=== PATIENT | female | born 1955 | race Caucasian/White ===

== ENCOUNTER 2021-06-03 21:45 | Inpatient (IN) | payer OTHER, MEDICAID ==
[~2021-06-03] VITALS: Ht 167.6 cm; Wt 122.0 kg
[2021-06-03 21:45] VITALS: BP_SYST 152
[2021-06-03] MEDS ORDERED: ONDANSETRON 4 MG ODT TAB ONE (21:56)
[2021-06-03 22:42] LABS: BASOPHILS # (AUTO) 0.1 K/uL (0.0-0.2); BASOPHILS % (AUTO) 0.7 % (0.0-2.0); EOSINOPHILS # (AUTO) 0.3 K/uL (0.0-0.4); EOSINOPHILS % (AUTO) 3.1 % (0.0-4.0); HEMATOCRIT 40.9 % (36-48); HEMOGLOBIN 13.3 g/dL (12.0-16.0); LYMPHOCYTES # (AUTO) 2.7 K/uL (1.0-5.5); LYMPHOCYTES % (AUTO) 32.8 % (20.5-51.5); MEAN CORPUSCULAR HEMOGLOBIN 28 pg (27-31); MEAN CORPUSCULAR HGB CONC 33 % (32-36); MEAN CORPUSCULAR VOLUME 87 fL (79.0-98.0); MONOCYTES # (AUTO) 0.4 K/uL (0.0-1.0); MONOCYTES % (AUTO) 5.4 % (1.7-9.3); NEUTROPHILS # (AUTO) 4.8 K/uL (1.8-7.7); PLATELET COUNT (AUTO) 236 K/uL (130-430); RED BLOOD CELL COUNT(AUTO) 4.68 MIL/uL (4.2-6.2); RED CELL DISTRIBUTION WIDTH 17.6 % (9.0-15.0); WHITE BLOOD COUNT (AUTO) 8.3 K/uL (4.8-10.8)
[2021-06-03 22:48] LABS: ANION GAP 8 (5-15); CALCIUM 9.5 mg/dL (8.4-11.0); CHLORIDE 98 mmol/L (98-107); CREATININE 1.27 mg/dL (0.55-1.30); GLUCOSE 192 mg/dL (70-99); POTASSIUM 3.8 mmol/L (3.5-5.1); SODIUM SERUM 136 mmol/L (136-145); UREA NITROGEN, BLOOD 13 mg/dL (8-21)
[2021-06-03 22:53] LABS: GFR AFRICAN AMERICAN 54 mL/min (>90)
[2021-06-03 22:55] LABS: INR 0.9 (0.8-1.2); PROTHROMBIN TIME 9.6 SECS (9.5-12.5)
[2021-06-03 22:59] LABS: ALANINE AMINOTRANSFERASE 21 U/L (12-78); ALBUMIN 3.3 g/dL (3.4-4.8); ASPARTATE AMINOTRANSFERASE 17 U/L (10-37); TOTAL BILIRUBIN 0.3 mg/dL (0.0-1.0)
[2021-06-03 23:47] LABS: CANNABINOID, URINE POSITIVE (NEG <=50)
[2021-06-03 23:48] LABS: BARBITURATE, URINE NEGATIVE (NEG <=200); BENZODIAZEPINE, URINE NEGATIVE (NEG <=150); COCAINE, URINE NEGATIVE (NEG <=150); METHAMPHETAMINES SCREEN,URINE NEGATIVE (NEG <=500); OPIATE, URINE NEGATIVE (NEG <=100); PHENCYCLIDINE SCREEN,URINE NEGATIVE (NEG <=25); UR TRICYCLIC ANTIDEPRESSANTS NEGATIVE (NEG <=300); URINE AMPHETAMINE NEGATIVE (NEG <=500); URINE METHADONE NEGATIVE (NEG <=200); URINE OXYCODONE SCREEN NEGATIVE (NEG <=100); URINE PROPOXYPHENE SCREEN NEGATIVE (NEG <=300)
[2021-06-03 23:51] LABS: BILIRUBIN,URINE NEGATIVE (NEGATIVE); COLOR,URINE YELLOW (YELLOW); GLUCOSE,URINE 3+ (NEGATIVE); KETONES,URINE TRACE (NEGATIVE); LEUKOCYTE ESTERASE ,URINE NEGATIVE (NEGATIVE); NITRITE, URINE POSITIVE (NEGATIVE); PROTEIN URINE 1+ (NEGATIVE)
[2021-06-04 00:01] LABS: BLOOD, URINE TRACE (NEGATIVE); CLARITY/URINE SLIGHTLY HAZY (CLEAR)
[2021-06-04] MEDS ORDERED: cefTRIAXone 1 GM IVPB PREMIX 50 ML IV ONE (00:30)
[2021-06-04] MEDS ORDERED: NACL 0.9% 1,000 ML IV ONE ×2 (00:30→02:30)
[2021-06-04] MEDS ORDERED: LORazepam 2 MG/ML VIAL IVP ONE (01:30)
[2021-06-04] MEDS ORDERED: cefTRIAXone 1 GM in D5W 50 ML IV ONE (02:30)
[2021-06-04] MEDS ORDERED: DIPHENHYDRAMINE INJ 50 MG/ML VIAL ONE (03:44)
[2021-06-04] MEDS ORDERED: DIPHENHYDRAMINE INJ 50 MG/ML VIAL IVP ONE (03:45)
[2021-06-04] MEDS ORDERED: METH-634 PO (04:25)
[2021-06-04] MEDS ORDERED: POLY15DR31 EACH EYE (04:25)
[2021-06-04] MEDS ORDERED: ACET-2634 PO (04:25)
[2021-06-04] MEDS ORDERED: DOCU-144 PO (04:25)
[2021-06-04] MEDS ORDERED: METO25TA6 PO (04:25)
[2021-06-04] MEDS ORDERED: BUSP10TA3 PO (04:25)
[2021-06-04] MEDS ORDERED: LIP40 PO (04:25)
[2021-06-04] MEDS ORDERED: VITD2000 PO (04:25)
[2021-06-04] MEDS ORDERED: NITSL SL (04:25)
[2021-06-04] MEDS ORDERED: LORA10TA7 PO (04:25)
[2021-06-04] MEDS ORDERED: INSU200I SQ (04:25)
[2021-06-04] MEDS ORDERED: WELSR150 PO (04:25)
[2021-06-04] MEDS ORDERED: METF-518 PO (04:25)
[2021-06-04] MEDS ORDERED: LOSA25TA3 PO (04:25)
[2021-06-04] MEDS ORDERED: OMEP20CA15 PO (04:25)
[2021-06-04] MEDS ORDERED: ALBU8.5H8 INH (04:25)
[2021-06-04] MEDS ORDERED: LEVO25TA7 PO (04:25)
[2021-06-04] MEDS ORDERED: ASA81 PO (04:25)
[2021-06-04 06:50] VITALS: BP_SYST 158
[2021-06-04 06:59] LABS: CALCIUM 9.4 mg/dL (8.4-11.0); CREATININE 1.04 mg/dL (0.55-1.30); POTASSIUM 4.2 mmol/L (3.5-5.1)
[2021-06-04 07:05] LABS: ALBUMIN 3.1 g/dL (3.4-4.8); TOTAL BILIRUBIN 0.1 mg/dL (0.0-1.0)
[2021-06-04 07:06] LABS: BASOPHILS % (AUTO) 0.2 % (0.0-2.0); EOSINOPHILS # (AUTO) 0.1 K/uL (0.0-0.4); EOSINOPHILS % (AUTO) 1.7 % (0.0-4.0); HEMATOCRIT 39.7 % (36-48); HEMOGLOBIN 12.9 g/dL (12.0-16.0); LYMPHOCYTES # (AUTO) 1.5 K/uL (1.0-5.5); LYMPHOCYTES % (AUTO) 22.9 % (20.5-51.5); MEAN CORPUSCULAR HEMOGLOBIN 29 pg (27-31); MEAN CORPUSCULAR HGB CONC 33 % (32-36); MEAN CORPUSCULAR VOLUME 88 fL (79.0-98.0); MONOCYTES # (AUTO) 0.3 K/uL (0.0-1.0); MONOCYTES % (AUTO) 4.3 % (1.7-9.3); NEUTROPHILS # (AUTO) 4.6 K/uL (1.8-7.7); NEUTROPHILS % (AUTO) 70.9 % (40.0-70.0); PLATELET COUNT (AUTO) 222 K/uL (130-430); RED BLOOD CELL COUNT(AUTO) 4.53 MIL/uL (4.2-6.2); RED CELL DISTRIBUTION WIDTH 17.7 % (9.0-15.0); WHITE BLOOD COUNT (AUTO) 6.6 K/uL (4.8-10.8)
[2021-06-04 08:00] VITALS: BP_SYST 158
[2021-06-04 09:12] VITALS: BP_SYST 158
[2021-06-04 12:00] VITALS: BP_SYST 135
[2021-06-04] MEDS ORDERED: MORPHINE 2 MG/ML INJ. SYRINGE IVP PRN (14:15)
[2021-06-04] MEDS ORDERED: NALOXONE HCL 0.4 MG/ML AMP (NARCAN) IVP PRN ×2 (14:15)
[2021-06-04] MEDS: MORPHINE 2 MG/ML INJ. SYRINGE IVP PRN ×2 (14:52→20:01)
[2021-06-04 16:00] VITALS: BP_SYST 137
[2021-06-04 20:00] VITALS: BP_SYST 147
[2021-06-05] VITALS (8 sets, daily range): BP systolic 156–179
[2021-06-05] MEDS: MORPHINE 2 MG/ML INJ. SYRINGE IVP PRN ×5 (00:14→20:54)
[2021-06-05] MEDS: cloNIDine HCL 0.1 MG TABLET PO PRN ×2 (16:40→20:48)
[2021-06-06 01:09] VITALS: BP_SYST 138
[2021-06-06] MEDS: MORPHINE 2 MG/ML INJ. SYRINGE IVP PRN ×3 (02:56→21:58)
[2021-06-06] MEDS: METOPROLOL SUCCINATE 50 MG TAB.SR.24H (TOPROL XL) PO SCH (08:26)
[2021-06-06 12:34] VITALS: BP_SYST 158
[2021-06-06 17:56] VITALS: BP_SYST 181
[2021-06-07 00:09] VITALS: BP_SYST 153
[2021-06-07] MEDS: MORPHINE 2 MG/ML INJ. SYRINGE IVP PRN (05:44)
[2021-06-07 08:01] VITALS: BP_SYST 159
[2021-06-07] MEDS: lisinopriL 5 MG TABLET PO SCH (09:35)
[2021-06-07] MEDS: METOPROLOL SUCCINATE 50 MG TAB.SR.24H (TOPROL XL) PO SCH (09:36)
[2021-06-07 11:27] VITALS: BP_SYST 156
[2021-06-07] MEDS ORDERED: D5W 1,000 ML IV PRN (11:45)
[2021-06-07] MEDS ORDERED: DEXTROSE 50% JECT 50 ML DISP.SYRIN IVP PRN (11:45)
[2021-06-07] MEDS ORDERED: GLUCOSE (DEXTROSE) ORAL GEL -Adults PO PRN (11:45)
[2021-06-07] MEDS ORDERED: ALBUTEROL MDI INHALATION 8 GM INH INH PRN (13:45)
[2021-06-07] MEDS ORDERED: ASPIRIN 81 MG TAB.CHEW PO SCH (13:45)
[2021-06-07] MEDS ORDERED: NITROGLYCERIN 0.4 MG TAB.SUBL SL SCH (13:45)
[2021-06-07] MEDS ORDERED: ALBUTEROL SULFATE 0.083% 2.5 MG/3 ML VIAL.NEB INH PRN (14:45)
[2021-06-07] MEDS: traMADol HCL HCL 50 MG TABLET (ULTRAM) PO PRN ×2 (15:01→22:32)
[2021-06-07 16:00] VITALS: BP_SYST 147
[2021-06-07] MEDS ORDERED: ASPIRIN 81 MG TAB.CHEW PO ONE (16:00)
[2021-06-07] MEDS ORDERED: INSULIN Lispro 100 UNITS/ML VIAL (humaLOG) SUBCUT SCH (17:00)
[2021-06-07] MEDS ORDERED: METOPROLOL TARTRATE 25 MG TABLET PO SCH (21:00)
[2021-06-07] MEDS: PEG 400/HYPROMELLOSE/GLYCERIN 15 ML DROPS EACH EYE SCH (21:00)
[2021-06-07] MEDS ORDERED: OMEPRAZOLE Non-Formulary 20 MG CAPSULE.DR PO SCH (21:00)
[2021-06-07] MEDS: DOCUSATE SODIUM 100 MG CAPSULE PO SCH (22:06)
[2021-06-07] MEDS: busPIRone HCL 5 MG TABLET PO SCH (22:06)
[2021-06-07] MEDS: metFORMIN HCL 500 MG TABLET PO SCH (22:19)
[2021-06-07] MEDS: buPROPion HCL 150 MG TABLET.SA PO SCH (22:19)
[2021-06-07] MEDS: methocarbamoL 500 MG TABLET PO PRN (22:31)
[2021-06-07] MEDS: INSULIN REGULAR, HUMAN 100 UNITS/ML, 10 ML VIAL (humuLIN R) SUBCUT PRN (22:57)
[2021-06-08] MEDS: traMADol HCL HCL 50 MG TABLET (ULTRAM) PO PRN ×7 (00:33→23:13)
[2021-06-08] MEDS: LEVOTHYROXINE SODIUM 0.1 MG TABLET PO SCH (07:00)
[2021-06-08] MEDS: INSULIN REGULAR, HUMAN 100 UNITS/ML, 10 ML VIAL (humuLIN R) SUBCUT PRN ×3 (07:54→21:54)
[2021-06-08 08:00] VITALS: BP_SYST 152
[2021-06-08] MEDS ORDERED: LOSARTAN POTASSIUM 25 MG TABLET PO SCH (09:00)
[2021-06-08] MEDS: PEG 400/HYPROMELLOSE/GLYCERIN 15 ML DROPS EACH EYE SCH ×2 (09:00→21:40)
[2021-06-08 09:20] VITALS: BP_SYST 138
[2021-06-08] MEDS: ASPIRIN 81 MG TAB.CHEW PO SCH (09:23)
[2021-06-08] MEDS: LORATADINE 10 MG TABLET PO SCH (09:23)
[2021-06-08] MEDS: DOCUSATE SODIUM 100 MG CAPSULE PO SCH ×2 (09:23→21:44)
[2021-06-08] MEDS: PANTOPRAZOLE SODIUM 40 MG TAB PO SCH (09:25)
[2021-06-08] MEDS: lisinopriL 5 MG TABLET PO SCH (09:26)
[2021-06-08] MEDS: metFORMIN HCL 500 MG TABLET PO SCH ×2 (09:27→21:41)
[2021-06-08] MEDS: buPROPion HCL 150 MG TABLET.SA PO SCH ×2 (09:27→21:51)
[2021-06-08] MEDS: busPIRone HCL 5 MG TABLET PO SCH ×2 (09:27→21:41)
[2021-06-08] MEDS: CHOLECALCIFEROL (VITAMIN D3) 2,000 UNIT TABLET PO SCH (09:28)
[2021-06-08] MEDS: METOPROLOL SUCCINATE 50 MG TAB.SR.24H (TOPROL XL) PO SCH (09:29)
[2021-06-08] MEDS: ATORVASTATIN 20 MG TABLET PO SCH (09:29)
[2021-06-08] MEDS: methocarbamoL 500 MG TABLET PO PRN ×2 (09:30→18:02)
[2021-06-08 11:32] VITALS: BP_SYST 137
[2021-06-08] MEDS: ACETAMINOPHEN 500 MG TABLET PO PRN (14:29)
[2021-06-08 15:23] VITALS: BP_SYST 137
[2021-06-08 20:00] VITALS: BP_SYST 131
[2021-06-08] MEDS ORDERED: traZODone HCL 50 MG TABLET (DESYREL) ONE (23:28)
[2021-06-09] MEDS: ACETAMINOPHEN 500 MG TABLET PO PRN (01:37)
[2021-06-09 01:39] VITALS: BP_SYST 144
[2021-06-09] MEDS: traMADol HCL HCL 50 MG TABLET (ULTRAM) PO PRN (05:55)
[2021-06-09] MEDS: LEVOTHYROXINE SODIUM 0.1 MG TABLET PO SCH (06:32)
[2021-06-09] MEDS: INSULIN REGULAR, HUMAN 100 UNITS/ML, 10 ML VIAL (humuLIN R) SUBCUT PRN (06:37)
[2021-06-09 08:00] VITALS: BP_SYST 135
[2021-06-09] MEDS: metFORMIN HCL 500 MG TABLET PO SCH (08:31)
[2021-06-09] MEDS: DOCUSATE SODIUM 100 MG CAPSULE PO SCH (08:31)
[2021-06-09] MEDS: lisinopriL 5 MG TABLET PO SCH (08:31)
[2021-06-09] MEDS: PANTOPRAZOLE SODIUM 40 MG TAB PO SCH (08:31)
[2021-06-09] MEDS: METOPROLOL SUCCINATE 50 MG TAB.SR.24H (TOPROL XL) PO SCH (08:31)
[2021-06-09] MEDS: ASPIRIN 81 MG TAB.CHEW PO SCH (08:32)
[2021-06-09] MEDS: buPROPion HCL 150 MG TABLET.SA PO SCH (08:32)
[2021-06-09] MEDS: LORATADINE 10 MG TABLET PO SCH (08:32)
[2021-06-09] MEDS: CHOLECALCIFEROL (VITAMIN D3) 2,000 UNIT TABLET PO SCH (08:32)
[2021-06-09] MEDS: busPIRone HCL 5 MG TABLET PO SCH (08:32)
[2021-06-09] MEDS: ATORVASTATIN 20 MG TABLET PO SCH (08:32)
[2021-06-09 10:48] VITALS: BP_SYST 135
[2021-06-09 11:25] VITALS: BP_SYST 139
[2021-06-09] MEDS: methocarbamoL 500 MG TABLET PO PRN (11:30)
[2021-06-09] MEDS ORDERED: traZODone HCL 50 MG TABLET (DESYREL) PO SCH (21:00)
== END 2021-06-09 12:15 | DRG 689 ==
LOC: SED 21:45 → STU 06-04 02:17 → SMU 06-04 05:54 → STU 06-04 06:14 → SMU 06-05 10:06
PROVIDERS: ADMIT Internal Medicine; ATTEND Internal Medicine
DX: N39.0 Urinary tract infection, site not specified (principal); G93.41 Metabolic encephalopathy; F05 Delirium due to known physiological condition; Z68.41 Body mass index [BMI] 40.0-44.9, adult; E86.0 Dehydration; I10 Essential (primary) hypertension; E78.00 Pure hypercholesterolemia, unspecified; Z20.822 Contact with and (suspected) exposure to COVID-19; E11.9 Type 2 diabetes mellitus without complications; E66.9 Obesity, unspecified; Z79.82 Long term (current) use of aspirin; Z79.899 Other long term (current) drug therapy
CPT/HCPCS: 36415; 70450-TC; 71045; 76376; 80048; 80053; 80307; 81003; 82140; 82962; 84484; 85025; 85610-TC; 85730-TC; 86886; 86900; 86901; 93005; 96374; 96375; 97116-GP; 97530-GP; 99285; G0378; J0696; J1200; J2060; J2270; Q0162